=== PATIENT | male | born 1995 | race African-American/Black ===

== ENCOUNTER → 2016-07-05 | Outpatient (CLI) | payer OTHER ==
--- NOTE | 2016-07-05 12:02 | REP ---
Clinical: Left-sided "palpable mass". Technique: Real time mendez scale and color evaluation using linear high frequency transducer. Findings: Directed ultrasound examination of the left neck mass corresponds to relatively normal lymph node measuring 15 x 8 x 6 mm. The thyroid gland is relatively normal in contour, size, and general parenchymal echo texture. A few nonspecific small bilateral hypoechoic nodules and cysts are identified measuring up to 7.4 mm in the lower pole right lobe and 6.5 mm lower pole left lobe. Right thyroid lobe measures 5.1 x 2.6 x 1.6 cm. Left thyroid lobe measures 5.1 x 2.1 x 1.3 cm. Isthmus measures 1.2 mm in width. Impression: 1. Left-sided "palpable mass" corresponds to a normal lymph node. 2. Thyroid gland demonstrates few scattered nonspecific, hypoechoic nodules/cysts measuring up to 7.4 mm. Signed by Malachi Zapata MD 07/05/2016 11:53 A
== END ==
LOC: M RAD 10:19
PROVIDERS: ATTEND Nurse Practitioner Family
DX: R22.1 Localized swelling, mass and lump, neck (principal)

== ENCOUNTER → 2016-07-09 | Outpatient (CLI) | payer OTHER ==
--- NOTE | 2016-07-09 11:58 | REP ---
SOFT-TISSUE ULTRASOUND AND CHEST WALL: 07/09/2016 CLINICAL HISTORY: Swelling over the right lower back, palpable finding. No prior study. In the region of the palpable lump in the right lower back, there is a subcutaneous hypoechoic mass about 2.3 x 2.1 x 1.2 cm. This is generally isoechoic to the subcutaneous tissues. It may certainly represent a lipoma. There was no definite color flow within it. There are no cystic components. IMPRESSION: 1. Subcutaneous soft tissue mass 2.3 x 2.1 x 1.2 cm in the right lower back, most consistent with lipoma. It is isoechoic to the surrounding subcutaneous tissues. No definite color flow within it. Please recall that ultrasound is not a tissue specific diagnostic modality. Signed by Clay Gonzalez MD 07/09/2016 08:10 P
== END ==
LOC: M RAD 10:39
PROVIDERS: ATTEND Nurse Practitioner Family
DX: R22.1 Localized swelling, mass and lump, neck (principal); R22.2 Localized swelling, mass and lump, trunk

== ENCOUNTER → 2018-06-21 | Outpatient (CLI) | payer OTHER ==
--- NOTE | 2018-06-21 18:36 | REP ---
Clinical: Nontoxic multinodular goiter. Comparison: 07/05/2016. Technique: Real time mendez scale and color evaluation using linear and curved array transducers. Findings: The thyroid gland is heterogeneous and cystic essentially unchanged from prior examination. The right lobe measures 5.1 x 2.1 x 1.6 cm and includes 5.4 x 2.4 x 4.4 mm, 2.5 x 2.3 x 2.5 mm, and 4.5 x 2.8 x 5.0 mm cysts. Left lobe measures 4.7 x 1.7 x 1.3 cm and includes 3.3 x 2.7 x 2.7 mm, 2.1 x 1.6 x 1.6 mm, and 4.0 x 2.3 x 4.3 mm cysts. Isthmus measures 2.5 mm in width. Impression: Thyroid gland with few scattered cysts essentially unchanged from prior examination. Electronically Signed by Malachi Zapata MD 06/21/2018 06:28 P
== END ==
LOC: M RAD 11:02
PROVIDERS: ATTEND Nurse Practitioner Adult Health
DX: Z00.00 Encounter for general adult medical examination without abnormal findings (principal); E04.2 Nontoxic multinodular goiter

== ENCOUNTER → 2018-07-03 | Outpatient (REF) | payer OTHER ==
[2018-07-03 18:16] LABS: FREE THYROXINE INDEX 2.4 % (1.4-3.8); THYROID STIMULATING HORMONE 1.77 uIU/ML (0.358-3.740); THYROXINE (T4) 7.1 UG/DL (4.5-12.0)
== END ==
LOC: M LAB REF 17:08
PROVIDERS: ATTEND Nurse Practitioner Adult Health
DX: E04.2 Nontoxic multinodular goiter (principal)

== ENCOUNTER → 2018-10-05 | Outpatient (REF) | payer OTHER ==
[2018-10-05 18:40] LABS: FREE T4 0.82 NG/DL (0.76-1.46); THYROID STIMULATING HORMONE 2.3 uIU/ML (0.358-3.740)
== END ==
LOC: M LAB REF 17:11
PROVIDERS: ATTEND Nurse Practitioner Adult Health
DX: E04.2 Nontoxic multinodular goiter (principal)

== ENCOUNTER → 2019-05-03 | Outpatient (REF) | payer OTHER ==
[2019-05-03 20:10] LABS: ALBUMIN 4.6 GM/DL (3.2-5.2); ALT/SGPT 22 U/L (12-78); BILIRUBIN,TOTAL 0.9 MG/DL (0.2-1.0); BLOOD UREA NITROGEN 10 MG/DL (7-18); CALCIUM LEVEL 9.4 MG/DL (8.5-10.1); CARBON DIOXIDE LEVEL 33 MEQ/L (21-32); CHLORIDE LEVEL 105 MEQ/L (98-107); CREATININE FOR GFR 0.97 MG/DL (0.70-1.30); FREE T4 0.79 NG/DL (0.76-1.46); GLOMERULAR FILTRATION RATE > 60.0 (>60); GLUCOSE, FASTING 81 MG/DL (70-100); POTASSIUM SERUM 3.8 MEQ/L (3.5-5.1); SODIUM LEVEL 141 MEQ/L (136-145); TOTAL PROTEIN 7.9 GM/DL (6.4-8.2)
== END ==
LOC: M LAB REF 18:36
PROVIDERS: ATTEND Nurse Practitioner Adult Health
DX: E04.2 Nontoxic multinodular goiter (principal)

== ENCOUNTER → 2019-07-25 | Outpatient (REF) | payer OTHER, MEDICAID ==
[2019-07-25 19:27] LABS: FREE T4 1.07 NG/DL (0.76-1.46); THYROID STIMULATING HORMONE 0.745 uIU/ML (0.358-3.740)
[2019-07-25 19:29] LABS: THYROID PEROXIDASE ANTIBODY < 28.0 U/ML (<60.0)
== END ==
LOC: M LAB REF 18:30
PROVIDERS: ATTEND Nurse Practitioner Adult Health
DX: E04.2 Nontoxic multinodular goiter (principal)

== ENCOUNTER 2022-05-31 17:23 | Emergency (ER) | payer MEDICAID, OTHER ==
[~2022-05-31] VITALS: Ht 195.6 cm; Wt 100.0 kg
[2022-05-31 20:03] LABS: HEMOGLOBIN 15.1 g/dl (13.5-17.5); MEAN CORPUSCULAR HEMOGLOBIN 30.8 pg (27.0-33.0); MEAN CORPUSCULAR HGB CONC 34.3 g/dl (32.0-36.5); MEAN CORPUSCULAR VOLUME 89.8 fl (80.0-96.0); PLATELET COUNT, AUTOMATED 294 10^3/uL (150-450); WHITE BLOOD COUNT 8.5 10^3/uL (4.0-10.0)
[2022-05-31 20:25] LABS: THYROID STIMULATING HORMONE 0.724 uIU/ML (0.55-4.78)
[2022-05-31 20:31] LABS: AMPHETAMINES LEVEL URINE NEGATIVE (NEGATIVE); BARBITURATES URINE NEGATIVE (NEGATIVE); BENZODIAZEPINES URINE NEGATIVE (NEGATIVE); COCAINE METABOLITE URINE NEGATIVE (NEGATIVE); METHADONE URINE NEGATIVE (NEGATIVE); OPIATES URINE NEGATIVE (NEGATIVE); PHENCYCLIDINE URINE NEGATIVE (NEGATIVE)
[2022-05-31 20:32] LABS: CANNABINOIDS URINE POSITIVE (NEGATIVE)
[2022-05-31 21:11] LABS: ACETAMINOPHEN LEVEL < 2.0 UG/ML (10.0-20.0); SALICYLATE LEVEL < 3.0 MG/DL (<30)
[2022-05-31 21:12] LABS: ALBUMIN 4.3 G/DL (3.2-5.2); ALKALINE PHOSPHATASE 61 U/L (46-116); ALT/SGPT 34 U/L (7.0-40); AST/SGOT 25 U/L (<34); BILIRUBIN,DIRECT 0.3 MG/DL (<0.4); BILIRUBIN,TOTAL 0.8 MG/DL (0.3-1.2); BLOOD UREA NITROGEN 14 MG/DL (9-23); CALCIUM LEVEL 9.4 MG/DL (8.5-10.1); CARBON DIOXIDE LEVEL 30 MMOL/L (20-31); CHLORIDE LEVEL 106 MMOL/L (98-107); CREATININE FOR GFR 0.91 MG/DL (0.70-1.30); GLOMERULAR FILTRATION RATE > 60.0 (>60); GLUCOSE, FASTING 73 MG/DL (60-100); POTASSIUM SERUM 4.4 MMOL/L (3.5-5.1); SODIUM LEVEL 142 MMOL/L (136-145); TOTAL PROTEIN 7.3 G/DL (5.7-8.2)
[2022-05-31] MEDS ORDERED: HOME MED LIST COMPLETE! XX SCH (22:05)
[2022-06-01 00:20] VITALS: BP 130/73
== END 2022-06-01 00:28 | disposition home or self-care (01) ==
LOC: M ED 17:23
DX: F32.A Depression, unspecified (principal); F41.9 Anxiety disorder, unspecified; R45.851 Suicidal ideations; F15.10 Other stimulant abuse, uncomplicated

== ENCOUNTER 2023-02-19 08:18 | Emergency (ER) | payer MEDICAID, OTHER, SELFPAY ==
[~2023-02-19] VITALS: Ht 195.6 cm; Wt 105.6 kg
[2023-02-19 09:58] VITALS: BP 120/64; TEMP 99; O2SAT 98
== END 2023-02-19 10:10 | disposition home or self-care (01) ==
LOC: M ED 08:18
DX: S90.934A Unspecified superficial injury of right lesser toe(s), initial encounter (principal); F17.200 Nicotine dependence, unspecified, uncomplicated; Y92.009 Unspecified place in unspecified non-institutional (private) residence as the place of occurrence of the external cause; Y93.89 Activity, other specified; Y99.9 Unspecified external cause status; Z79.899 Other long term (current) drug therapy